=== PATIENT | male | born 1950 | race Caucasian/White ===

== ENCOUNTER 2017-07-10 13:51 | Observation (INO) | payer OTHER ==
[~2017-07-10 13:51] MED LIST: CEFTRIAXONE 1 GM in DEXTROSE 5%-WATER - 50 ML IVPB SCH
[2017-07-10 13:59] VITALS: BMI 28.2
--- NOTE | 2017-07-10 16:27 | PDOC ---
History of Present Illness - General Chief Complaint: Shortness of Breath Stated Complaint: SOB Time Seen by Provider: 07/10/17 15:44 History Source: Patient - History of Present Illness Initial Comments: 07/10/17 18:20 Patient is a 67 y.o. with a PMH of COPD (not on home O2), HTN, DLD, Chronic Back Pain and ID (s/p stent) who presents to our ED today c/o 1 day h/o of dyspnea on exertion. Patient endorses associated pleuritic chest pain but denes any cough. Patient notes a recent viral URI (symptoms resolved 1 week previous) as well as h/o diarrhea yesterday following excess consumption of non- pasteurized cheese. Past History - Past Medical History Allergies/Adverse Reactions: Allergies Allergy/AdvReac Type Severity Reaction Status Date / Time No Known Allergies Allergy Verified 07/10/17 13:56 Home Medications: Ambulatory Orders Albuterol 0.083% Nebulizer Andressa [Ventolin 0.083%] 1 neb NEB QID PRN 12/23/14 Albuterol Sulfate Inhaler - [Ventolin HFA Inhaler -] 1 - 2 inh PO Q6H PRN #1 inhaler 12/23/14 Aspirin [Aspirin EC] 81 mg PO DAILY 12/23/14 Levofloxacin [Levaquin -] 750 mg PO DAILY #10 tablet 12/23/14 Lisinopril [Prinivil -] 40 mg PO DAILY 12/23/14 Prednisone [Deltasone -] 40 mg PO DAILY #10 tablet 12/23/14 Rosuvastatin Calcium [Crestor] 20 mg PO DAILY 12/23/14 Salmeterol/Fluticasone [Advair 100Mcg/50Mcg -] 1 inh IH Q6H PRN #1 inh 12/23/14 Cardiac Disorders: Yes COPD: Yes HTN: Yes Hypercholesterolemia: Yes - Suicide/Smoking/Psychosocial Hx Smoking Status: No Smoking History: Current some day smoker Have you smoked in the past 12 months: No Number of Cigarettes Smoked Daily: 1 Information on smoking cessation initiated: No Hx Alcohol Use: No Drug/Substance Use Hx: No Substance Use Type: None Review of Systems - Review of Systems Constitutional: No: Chills, Fever Respiratory: Yes: Shortness of Breath Cardiac (ROS): Yes: Other (Pleuritic Chest Pain) ABD/GI: No: Constipated, Diarrhea, Nausea, Vomiting : No: Burning, Dysuria All Other Systems: Reviewed and Negative *Physical Exam - Vital Signs Last Vital Signs Temp Pulse Resp BP Pulse Ox 98.7 F 114 H 25 H 149/81 96 07/10/17 13:54 07/10/17 14:50 07/10/17 16:01 07/10/17 13:54 07/10/17 14:50 - Physical Exam General Appearance: Yes: Nourished, Appropriately Dressed HEENT: positive: EOMI, BETH Neck: positive: Trachea midline, Supple Respiratory/Chest: positive: Rapid RR, Wheezing. negative: Accessory Muscle Use , Labored Respiration Cardiovascular: positive: S1, S2 Integumentary: positive: Normal Color, Dry, Warm Neurologic: positive: Fully Oriented, Alert ED Treatment Course - LABORATORY CBC & Chemistry Diagram: 07/10/17 16:30 07/10/17 17:37 Medical Decision Making - Medical Decision Making 07/10/17 20:17 Patient is a 67 y.o. male who presents to the ED c/o dyspnea. On PE patient is hypoxic on RA, tachypneic and has significant wheezing on PE. Patient given Duo Nebs x2 + IV Solumedrol with resolution of wheezing but continued dyspnea and use of NC with SpO2 @ 94%. Will admit patient for further stabilization including pulmonary consult. Case d/w patient's PCP - Dr. Heller, agrees with admission. Request Ceftriaxone (1 mg QD) and Zithromax (500 mg BID) as well as pulmonary consult (Josafat) and ID consult (Bay). Patient signed out to Dr. Yariel Ni with planned disposition of admission following full medical evaluation with evaluation of CMP labs. Patient's PCP, Dr. Heller, requests callback when patient's lab results complete: [phone]. *DC/Admit/Observation/Transfer Diagnosis at time of Disposition: COPD (chronic obstructive pulmonary disease) - Discharge Dispostion Condition at time of disposition: Fair Admit: Yes - Referrals Referrals: Jorge A Heller MD [Primary Care Provider] - - Patient Instructions - Post Discharge Activity
[2017-07-10] MEDS ORDERED: methylPREDNISolone NA SUCC 125 MG/2 ML VIAL IVPB ONE (16:35)
[2017-07-10] MEDS ORDERED: AZITHROMYCIN 500 MG TABLET PO ONE (16:35)
[2017-07-10] MEDS ORDERED: AZITHROMYCIN 500 MG TABLET ONE (16:42)
[2017-07-10 16:43] LABS: BASO % 0.1 % (0-2.0); HEMATOCRIT 47.9 % (35.4-49); HEMOGLOBIN 16.3 GM/dL (11.7-16.9); LYMPH % 2.4 % (8-40); MCH 31.8 pg (25.7-33.7); MCHC 34.1 g/dl (32.0-35.9); MEAN CELL VOLUME 93.4 fl (80-96); MEAN PLT VOLUME 9.1 fl (7.5-11.1); MONO % 5.1 % (3.8-10.2); NEUT % 92.4 % (42.8-82.8); PLATELET COUNT 233 K/MM3 (134-434); RBC 5.13 M/mm3 (4.00-5.60); RDW 12.6 % (11.9-15.9); WHITE BLOOD COUNT 10.2 K/mm3 (4.0-10.0)
[2017-07-10] MEDS ORDERED: ALBUTEROL SO4 2.5/IPRATROPIUM 0.5 INH SOL 3 ML VIAL.NEB. NEB ONE (16:43)
[2017-07-10] MEDS ORDERED: methylPREDNISolone NA SUCC 125 MG/2 ML VIAL ONE (16:43)
[2017-07-10] MEDS: ALBUTEROL SO4 2.5/IPRATROPIUM 0.5 INH SOL 3 ML VIAL.NEB. NEB SCH ×4 (16:45→17:33)
--- NOTE | 2017-07-10 16:46 | PDOC ---
Attending Attestation - Resident Resident Name: Hellen Ricketts - ED Attending Attestation I have performed the following: I have examined & evaluated the patient, The case was reviewed & discussed with the resident, I agree w/resident's findings & plan, Exceptions are as noted - HPI HPI: 07/10/17 16:41 67 M with h/o COPD, HTN, HLD, CAD, active smoker, presenting to ER with SOB that began yesterday. Pt states that he feels chest tightness and has a dry nonproductive cough. Pt states it feels like his prior COPD exacerbations. He has been using his inhalers with minimal relief. Denies F/C. Denies leg swelling. - Physicial Exam PE: 07/10/17 16:44 "GENERAL: Awake, alert, and fully oriented, in no acute distress HEAD: No signs of trauma EYES: PERRLA, EOMI, sclera anicteric, conjunctiva clear ENT: Auricles normal inspection, hearing grossly normal, nares patent, oropharynx clear without exudates. Moist mucosa NECK: Nontender, no stepoffs, Normal ROM, supple, no lymphadenopathy, JVD, or masses LUNGS: bilateral expiratory wheezes, no rales/rhonchi HEART: Regular rate and rhythm, normal S1 and S2, no murmurs, rubs or gallops ABDOMEN: Soft, nontender, normoactive bowel sounds. No guarding, no rebound. No masses EXTREMITIES: Normal range of motion, no edema. No clubbing or cyanosis. No cords, erythema, or tenderness NEUROLOGICAL: Cranial nerves II through XII intact. 5/5 strength and sensation in all extremities, Normal speech, normal gait SKIN: Warm, Dry, normal turgor, no rashes or lesions noted. " - Medical Decision Making 07/10/17 16:45 67 M with likely COPD exacerbation. Given pt's significant cardiac history, will also r/o CAD and evaluate for CHF. - Labs, BNP, trop - CXR - Nebs, steroids - reassess Pt signed out to oncoming attending at 7PM, pending labs, XR, re-evaluation, and possible admission to hospital. Case discussed in detail with oncoming Emergency Physician including history, physical exam and ancillary studies. Oncoming Emergency Physician has assumed care for the patient and will complete the evaluation and treatment. Patient is aware of the plan.
[2017-07-10 20:35] LABS: ALBUMIN 4.5 g/dl (3.4-5.0); ANION GAP 13 (8-16); BILIRUBIN,TOTAL 0.6 mg/dL (0.2-1.0); BLOOD UREA NITROGEN 7 mg/dL (7-18); CALCIUM 8.9 mg/dL (8.5-10.1); CHLORIDE 102 mmol/L (98-107); CO2 25 mmol/L (21-32); CREATININE 0.8 mg/dL (0.7-1.3); GLUCOSE,RANDOM 103 mg/dL (74-106); SGPT/ALT 33 U/L (12-78); SODIUM 140 mmol/L (136-145); TOT PROT 7.9 g/dl (6.4-8.2)
--- NOTE | 2017-07-10 20:36 | PDOC ---
*Physical Exam - Vital Signs Last Vital Signs Temp Pulse Resp BP Pulse Ox 98.7 F 100 H 25 H 149/81 97 07/10/17 13:54 07/10/17 18:00 07/10/17 18:00 07/10/17 13:54 07/10/17 18:00 - Physical Exam Comments: 07/10/17 22:31 GENERAL: Awake, alert, and fully oriented, in no acute distress HEAD: No signs of trauma, normocephalic, atraumatic EYES: PERRLA, EOMI, sclera anicteric, conjunctiva clear ENT: Hearing grossly normal, nares patent, oropharynx clear without exudates. Moist mucosa NECK: Normal ROM, supple,no JVD, or masses LUNGS: + Exp/Insp rhonci. Absent rales. HEART: Regular rate and rhythm, normal S1 and S2, no murmurs, rubs or gallops, peripheral pulses normal and equal bilaterally. ABDOMEN: Soft, nontender, normoactive bowel sounds. No guarding, no rebound. No masses EXTREMITIES : Normal inspection, Normal range of motion, no edema. No clubbing or cyanosis. SKIN: Warm, Dry, normal turgor, no rashes or lesions noted. ED Treatment Course - LABORATORY CBC & Chemistry Diagram: 07/10/17 16:30 07/10/17 17:37 - ADDITIONAL ORDERS Additional order review: Laboratory Results 07/10/17 07/10/17 20:10 16:30 Anticoagulation Therapy No Result Required. O2 Delivery Device No Result Required. Oxygen Flow Rate No Result Required. Vent Mode No Result Required. Vent Rate No Result Required. Mechanical Rate No Result Required. Pressure Support Vent No Result Required. B-Natriuretic Peptide 304.37 H 07/10/17 18:05 Influenza Types A,B Antigen (PATRIZIA) - Final Nasopharyngeal Swab - Final 07/10/17 16:30 RBC 5.13 MCV 93.4 MCHC 34.1 RDW 12.6 MPV 9.1 Neutrophils % 92.4 H Lymphocytes % 2.4 L Monocytes % 5.1 Eosinophils % 0.0 Basophils % 0.1 - Medications Given in the ED: ED Medications Discontinued Medications Generic Name Dose Route Start Last Admin Trade Name Freq PRN Reason Stop Dose Admin Albuterol/Ipratropium 1 amp 07/10/17 16:45 01/24/18 17:33 Duoneb - NEB 07/10/17 17:31 1 amp Q15M JOHNNY Administration Azithromycin 500 mg 07/10/17 16:35 07/10/17 16:44 Azithromycin PO 07/10/17 16:36 500 mg ONCE ONE Administration Methylprednisolone Sodium Succinate 125 mg 07/10/17 16:35 07/10/17 16:44 Solu-Medrol - IVPB 07/10/17 16:36 125 mg ONCE ONE Administration Medical Decision Making - Medical Decision Making 07/10/17 22:29 67 y.o. male with h/o of COPD (not on home O2), HTN, [place] (s/p stent) who arrives to the ED tachypneic and hypoxic on RA with dyspnea x 1 day. Asx. w/ pleuritic chest pain. Physical exam notable for wheezing. Recieved handoff from Dr. Ricketts. ED course notable for Duo Nebs x2, IV Solumedrol w/ resolution of wheezing but continued dyspnea.Ceftriaxone (1 mg QD) and Zithromax (500 mg BID) started. Case d/w patient's PCP Dr. Heller, who agrees with admission. Pulm consult (Josafat) and ID consult (Bay).Patient is pending admission . ED Course: - Patient admitted to med/tele. Discussed with [employer] DES[employer]ER Evelyn Wolfe. - Patient stable with improvement in resp status. Wheezing resolved. *DC/Admit/Observation/Transfer Diagnosis at time of Disposition: COPD (chronic obstructive pulmonary disease) - Discharge Dispostion Condition at time of disposition: Fair - Referrals - Patient Instructions - Post Discharge Activity
[2017-07-10 20:37] LABS: ALK PHOS 78 U/L (45-117)
[2017-07-10 20:37] LABS: ARTERIAL BLD GAS O2 SATURATION 92.6 % (90-98.9); ARTERIAL BLOOD GAS BASE EXCESS 2.4 meq/l (-2-2); ARTERIAL BLOOD GAS PCO2 36.4 mmHg (35-45); ARTERIAL BLOOD GAS PO2 62.4 mmHg (80-100); ARTERIAL BLOOD GAS pH 7.46 (7.35-7.45)
[2017-07-10 20:38] LABS: POTASSIUM 4.1 mmol/L (3.5-5.1); SGOT/AST 23 U/L (15-37)
[2017-07-10 20:45] LABS: ALLENS TEST POSITIVE
[2017-07-10 20:47] LABS: CARBOXYHEMOGLOBIN 1.2 gm% (0.5-2.0)
--- NOTE | 2017-07-10 21:22 | HP ---
Admitting History and Physical - Primary Care Physician PCP: Jorge A Heller - Admission Chief Complaint: Dyspnea on exertion, cough, chest pain History of Present Illness: This is a 67 y/o man from home. Who presents to the ED with increased THACKER, non- productive cough and chest pain x 1day. Patient reports having flu like symptoms x 1 week. Patient reports pluertic chest pain when coughing, then resolves. Patient reports noting increased labored breathing on exertion. He denies fever, chills, dizziness, AP, N/V/D, constipation, dysuria. History Source: Patient Limitations to Obtaining History: No Limitations - Past Medical History Cardiovascular: Yes: HTN, Hyperlipdemia, [place] (s/p stent) Pulmonary: Yes: COPD Musculoskeletal: Yes: Chronic low back pain, Other (DJD) - Past Surgical History Past Surgical History: Yes: Stent - Smoking History Smoking history: Former smoker Have you smoked in the past 12 months: No - Alcohol/Substance Use Hx Alcohol Use: No History of Substance Use: reports: None - Social History Usual Living Arrangement: Yes: Alone History of Recent Travel: No Home Medications - Allergies Allergies/Adverse Reactions: Allergies Allergy/AdvReac Type Severity Reaction Status Date / Time No Known Allergies Allergy Verified 07/10/17 13:56 - Home Medications Home Medications: Ambulatory Orders Albuterol 0.083% Nebulizer Andressa [Ventolin 0.083%] 1 neb NEB QID PRN 12/23/14 Albuterol Sulfate Inhaler - [Ventolin HFA Inhaler -] 1 - 2 inh PO Q6H PRN #1 inhaler 12/23/14 Aspirin [Aspirin EC] 81 mg PO DAILY 12/23/14 Lisinopril [Prinivil -] 40 mg PO DAILY 12/23/14 Rosuvastatin Calcium [Crestor] 20 mg PO DAILY 12/23/14 Salmeterol/Fluticasone [Advair 100Mcg/50Mcg -] 1 inh IH Q6H PRN #1 inh 12/23/14 Review of Systems - Review of Systems Eyes: reports: No Symptoms HENT: reports: No Symptoms Cardiovascular: reports: Chest Pain, Shortness of Breath Respiratory: reports: Cough, SOB, SOB on Exertion, Wheezing Gastrointestinal: reports: No Symptoms Genitourinary: reports: No Symptoms Breasts: reports: No Symptoms Reported Musculoskeletal: reports: Back Pain Integumentary: reports: No Symptoms Neurological: reports: No Symptoms Endocrine: reports: No Symptoms Hematology/Lymphatic: reports: No Symptoms Psychiatric: reports: No Symptoms Physical Examination Vital Signs: Vital Signs Temperature 98.7 F 07/10/17 13:54 Pulse Rate 100 H 07/10/17 18:00 Respiratory Rate 25 H 07/10/17 18:00 Blood Pressure 149/81 07/10/17 13:54 O2 Sat by Pulse Oximetry (%) 97 07/10/17 18:00 Constitutional: Yes: Well Nourished, Moderate Distress Eyes: Yes: WNL, Conjunctiva Clear, EOM Intact, PERRL HENT: Yes: WNL, Atraumatic, Normocephalic Neck: Yes: WNL, Supple, Trachea Midline Cardiovascular: Yes: Tachycardia, S1, S2 Respiratory: Yes: Rhonchi, SOB, SOB on Exertion, Tachypnea, Wheezes Gastrointestinal: Yes: Normal Bowel Sounds, Soft Renal/: Yes: WNL Breast(s): Yes: WNL Musculoskeletal: Yes: WNL Extremities: Yes: WNL Edema: No Peripheral Pulses WNL: Yes Neurological: Yes: WNL, Alert, Oriented, Cran Nerves II-XII Intact ...Motor Strength: WNL, LUE, LLE, RUE, RLE Psychiatric: Yes: WNL, Alert, Oriented Labs: CBC, BMP 07/10/17 16:30 07/10/17 17:37 Laboratory Results - last 24 hr 07/10/17 07/10/17 07/10/17 16:30 16:30 17:37 WBC 10.2 H RBC 5.13 Hgb 16.3 Hct 47.9 MCV 93.4 MCH 31.8 MCHC 34.1 RDW 12.6 Plt Count 233 MPV 9.1 Neutrophils % 92.4 H Lymphocytes % 2.4 L Monocytes % 5.1 Eosinophils % 0.0 Basophils % 0.1 Anticoagulation Therapy Puncture Site ABG pH ABG pCO2 at Pt Temp ABG pO2 at Pt Temp ABG HCO3 ABG O2 Sat (Measured) ABG O2 Content ABG Base Excess Alvaro Test Carboxyhemoglobin Methemoglobin O2 Delivery Device Oxygen Flow Rate Vent Mode Vent Rate Mechanical Rate Pressure Support Vent Sodium 140 Potassium 4.1 Chloride 102 Carbon Dioxide 25 Anion Gap 13 BUN 7 Creatinine 0.8 Creat Clearance w eGFR > 60 Random Glucose 103 Calcium 8.9 Total Bilirubin 0.6 AST 23 ALT 33 Alkaline Phosphatase 78 Creatine Kinase 138 Troponin I < 0.02 B-Natriuretic Peptide 304.37 H Total Protein 7.9 Albumin 4.5 07/10/17 07/10/17 20:10 20:10 WBC RBC Hgb Hct MCV MCH MCHC RDW Plt Count MPV Neutrophils % Lymphocytes % Monocytes % Eosinophils % Basophils % Anticoagulation Therapy No Result Required. Puncture Site Right radial ABG pH 7.46 H ABG pCO2 at Pt Temp 36.4 ABG pO2 at Pt Temp 62.4 L ABG HCO3 25.5 ABG O2 Sat (Measured) 92.6 ABG O2 Content 20.5 ABG Base Excess 2.4 H Alvaro Test Positive Carboxyhemoglobin 1.2 Methemoglobin 0.8 O2 Delivery Device Nasal cannula Oxygen Flow Rate 4l Vent Mode No Result Required. Vent Rate No Result Required. Mechanical Rate No Result Required. Pressure Support Vent No Result Required. Sodium Potassium Chloride Carbon Dioxide Anion Gap BUN Creatinine Creat Clearance w eGFR Random Glucose Calcium Total Bilirubin AST ALT Alkaline Phosphatase Creatine Kinase Troponin I B-Natriuretic Peptide Total Protein Albumin Intake & Output 07/08/17 07/09/17 07/10/17 07/11/17 23:59 23:59 23:59 23:59 Weight 94.347 kg Imaging - Results Chest X-ray: Report Reviewed, Image Reviewed EKG: Image Reviewed Problem List - Problems (1) COPD exacerbation Code(s): J44.1 - CHRONIC OBSTRUCTIVE PULMONARY DISEASE W (ACUTE) EXACERBATION (2) Pleuritic chest pain Code(s): R07.81 - PLEURODYNIA (3) Atypical pneumonia Code(s): J18.9 - PNEUMONIA, UNSPECIFIED ORGANISM (4) CAD (coronary artery disease) Code(s): I25.10 - ATHSCL HEART DISEASE OF [place] CORONARY ARTERY W/O ANG PCTRS (5) HTN (hypertension) Code(s): I10 - ESSENTIAL (PRIMARY) HYPERTENSION (6) HLD (hyperlipidemia) Code(s): E78.5 - HYPERLIPIDEMIA, UNSPECIFIED (7) DVT prophylaxis Code(s): QRW1547 - Assessment/Plan 67 y/o man with a PMHx of: COPD, HTN, HLD, [place] (stent), DJD. Placed Tele Observation for Acute COPD Exacerbation, Atypical Pneumonia. Plan: 1. COPD Exacerbation - Acute - No leukocytosis, no L-shift - Chest xray report- no acute pathology - Duonebs - Solumederol given in ED - Continue Solumederol taper - Appreciate Pulm Consult - O2 - Monitor CBC,BMP - Monitor vitals 2. Atypical Pneumonia - hx recent viral illness - CURB65 1 - Blood Cultures-pending - Urine Culture-pending - Urine Legionella - Sputum culture - Appreciate plum - Azithyromcin given in ED - Will add Ceftriaxone and continue for CAP - O2 - Repeat CBC, BMP in am 3. Pleuritic Chest Pain - Likely secondary to cough - Serial Enzymes - Echo 4. CAD - s/p ?stent vs angiogram - Continue home meds - EKG- ST with PVC 5. HTN - Controlled - Monitor BP - Continue home meds - Monitor renal function 6. FEN - PO Fluids - Replete lytes prn - Low Na, Low Cholesterol Diet 7. Code Status: Full Code Dispo: Obs Visit type - Emergency Visit Emergency Visit: Yes ED Registration Date: 07/10/17 Care time: The patient presented to the Emergency Department on the above date and was hospitalized for further evaluation of their emergent condition. - New Patient This patient is new to me today: Yes Date on this admission: 07/10/17 - Critical Care Critical Care patient: No
[2017-07-10] MEDS ORDERED: ROSUVASTATIN CA 20 MG TABLET (FP) PO SCH (22:00)
[2017-07-10] MEDS ORDERED: CEFTRIAXONE 1 G/50 ML PREMIX 50 ML IVPB ONE (23:00)
[2017-07-10] MEDS ORDERED: LISINOPRIL 20 MG TABLET (FP) PO ONE (23:15)
[2017-07-10] MEDS ORDERED: IPRATROPIUM BR 0.02% 0.5 MG/2.5 ML VIAL.NEB. NEB ONE ×3 (23:15→23:29)
[2017-07-10] MEDS ORDERED: CEFTRIAXONE 1 GM/50 ML BAG ONE (23:17)
[2017-07-11] MEDS: methylPREDNISolone NA SUCC 40 MG/1 ML VIAL IVPUSH SCH ×3 (05:16→15:05)
[2017-07-11] MEDS ORDERED: methylPREDNISolone NA SUCC 40 MG/1 ML VIAL ONE (05:17)
[2017-07-11 08:01] LABS: ANION GAP 11 (8-16); BLOOD UREA NITROGEN 11 mg/dL (7-18); CALCIUM 8.7 mg/dL (8.5-10.1); CHLORIDE 103 mmol/L (98-107); CO2 27 mmol/L (21-32); GLUCOSE,RANDOM 180 mg/dL (74-106); MAGNESIUM 2.1 mg/dL (1.8-2.4); SODIUM 141 mmol/L (136-145)
[2017-07-11 08:03] LABS: CREATININE 0.7 mg/dL (0.7-1.3); PHOSPHOROUS 3.7 mg/dL (2.5-4.9)
[2017-07-11 08:14] LABS: BASO % 0.1 % (0-2.0); HEMATOCRIT 44.6 % (35.4-49); HEMOGLOBIN 14.9 GM/dL (11.7-16.9); LYMPH % 4.5 % (8-40); MCH 31.4 pg (25.7-33.7); MCHC 33.5 g/dl (32.0-35.9); MEAN CELL VOLUME 93.8 fl (80-96); MEAN PLT VOLUME 8.7 fl (7.5-11.1); MONO % 6.3 % (3.8-10.2); NEUT % 89.1 % (42.8-82.8); PLATELET COUNT 207 K/MM3 (134-434); RBC 4.76 M/mm3 (4.00-5.60); RDW 12.6 % (11.9-15.9); WHITE BLOOD COUNT 7.9 K/mm3 (4.0-10.0)
[2017-07-11] MEDS ORDERED: ALBUTEROL SO4 2.5/IPRATROPIUM 0.5 INH SOL 3 ML VIAL.NEB. NEB PRN (08:44)
[2017-07-11] MEDS ORDERED: CEFTRIAXONE 1 GM/50 ML BAG ONE (08:53)
[2017-07-11] MEDS ORDERED: AZITHROMYCIN IVPB 250 ML IVPB ONE (08:55)
[2017-07-11] MEDS ORDERED: ASPIRIN COATED 81 MG TABLET.EC PO SCH (10:00)
[2017-07-11] MEDS ORDERED: AZITHROMYCIN IVPB 500 MG in DEXTROSE 5%-WATER - 250 ML IVPB SCH (10:00)
[2017-07-11] MEDS ORDERED: CEFTRIAXONE 1 G/50 ML PREMIX 50 ML IVPB SCH (10:00)
[2017-07-11] MEDS ORDERED: LISINOPRIL 20 MG TABLET (FP) PO SCH (10:00)
--- NOTE | 2017-07-11 10:33 | EKG ---
Test Reason : Blood Pressure : / mmHG Vent. Rate : 113 BPM Atrial Rate : 113 BPM P-R Int : 140 ms QRS Dur : 080 ms QT Int : 316 ms P-R-T Axes : 068 001 050 degrees QTc Int : 433 ms POOR DATA QUALITY, INTERPRETATION MAY BE ADVERSELY AFFECTED SINUS TACHYCARDIA WITH PREMATURE SUPRAVENTRICULAR COMPLEXES OTHERWISE NORMAL ECG WHEN COMPARED WITH ECG OF 23-FEB-2005 16:35, PREMATURE SUPRAVENTRICULAR COMPLEXES ARE NOW PRESENT Confirmed by CATIE RAMOS, SANJIV ([id number]) on 07/11/2017 10:32:43 AM Referred By: Confirmed By:SANJIV HADDAD MD
[2017-07-11 13:59] VITALS: TEMP 98.3
--- NOTE | 2017-07-11 14:40 | CON.PULM ---
Consult Consult Specialty:: PULM/CCM Referred by:: KHADRA Reason for Consultation:: SOB - History of Present Illness Chief Complaint: SOB / COUGH History of Present Illness: 67 M, with listed medical history including COPD from smoking. Admitted via the ER due to progressive THACKER, non-productive cough, and pleuritic type chest pain for the past 1 week. No travel history or sick contacts. No subjective fever or chills. No night sweats or hemoptysis. No associated GI or symptoms. CXR: Clear - History Source History Provided By: Patient Limitations to Obtaining History: No Limitations - Past Medical History Cardio/Vascular: Yes: HTN, Hyperlipdemia, [place] (s/p stent) Pulmonary: Yes: COPD Musculoskeletal: Yes: Chronic low back pain, Other (DJD) - Past Surgical History Past Surgical History: Yes: Stent - Alcohol/Substance Use Hx Alcohol Use: No History of Substance Use: reports: None - Smoking History Smoking history: Former smoker Have you smoked in the past 12 months: No Aproximately how many cigarettes per day: 1 - Social History History of Recent Travel: No Home Medications - Allergies Allergies/Adverse Reactions: Allergies Allergy/AdvReac Type Severity Reaction Status Date / Time No Known Allergies Allergy Verified 07/10/17 13:56 - Home Medications Home Medications: Ambulatory Orders Albuterol 0.083% Nebulizer Andressa [Ventolin 0.083%] 1 neb NEB QID PRN 12/23/14 Albuterol Sulfate Inhaler - [Ventolin HFA Inhaler -] 1 - 2 inh PO Q6H PRN #1 inhaler 12/23/14 Aspirin [Aspirin EC] 81 mg PO DAILY 12/23/14 Lisinopril [Prinivil -] 40 mg PO DAILY 12/23/14 Rosuvastatin Calcium [Crestor] 20 mg PO DAILY 12/23/14 Salmeterol/Fluticasone [Advair 100Mcg/50Mcg -] 1 inh IH Q6H PRN #1 inh 12/23/14 Family Disease History - Family Disease History Family Disease History: Diabetes: Father, Heart Disease: Mother ( age 62 ), Other: Sister (well, alive) Review of Systems - Review of Systems Constitutional: reports: Malaise, Weakness. denies: Chills, Fever, Loss of Appetite, Night Sweats Eyes: reports: No Symptoms HENT: reports: No Symptoms Neck: reports: No Symptoms Cardiovascular: reports: Chest Pain, Shortness of Breath. denies: Edema, Palpitations Respiratory: reports: Cough, Snoring, SOB, SOB on Exertion, Wheezing. denies: Hemoptysis Gastrointestinal: reports: No Symptoms Genitourinary: reports: No Symptoms Breasts: reports: No Symptoms Reported Musculoskeletal: reports: No Symptoms Integumentary: reports: No Symptoms Neurological: reports: No Symptoms Endocrine: reports: No Symptoms Hematology/Lymphatic: reports: No Symptoms Psychiatric: reports: No Symptoms Physical Exam Vital Sings: Vital Signs Temperature 98.3 F 07/11/17 13:57 Pulse Rate 91 H 07/11/17 13:57 Respiratory Rate 16 07/11/17 13:57 Blood Pressure 121/76 07/11/17 13:57 O2 Sat by Pulse Oximetry (%) 94 L 07/11/17 13:57 Constitutional: Yes: No Distress, Calm Eyes: Yes: Conjunctiva Clear, EOM Intact HENT: Yes: Atraumatic, Normocephalic Neck: Yes: Supple, Trachea Midline Cardiovascular: Yes: Regular Rate and Rhythm Respiratory: Yes: Cough, Diminished, Rhonchi, SOB, Tachypnea, Wheezes. No: Accessory Muscle Use, On Nasal O2, Rales, Stridor ...Inspection: Yes: WNL ...Clubbing: No Gastrointestinal: Yes: Normal Bowel Sounds, Soft Renal/: Yes: WNL Musculoskeletal: Yes: WNL Extremities: Yes: WNL Edema: No Peripheral Pulses WNL: Yes Integumentary: Yes: WNL Neurological: Yes: WNL, Alert, Oriented ...Motor Strength: WNL Psychiatric: Yes: WNL, Alert, Oriented Labs: CBC, BMP 07/11/17 06:20 07/11/17 06:20 ABG Results ABG pH 7.46 (7.35-7.45) H 07/10/17 20:10 ABG pCO2 at Pt Temp 36.4 mmHg (35-45) 07/10/17 20:10 ABG pO2 at Pt Temp 62.4 mmHg (80-100) L 07/10/17 20:10 ABG HCO3 25.5 meq/L (22-26) 07/10/17 20:10 ABG O2 Sat (Measured) 92.6 % (90-98.9) 07/10/17 20:10 ABG O2 Content 20.5 % vol (15-22) 07/10/17 20:10 ABG Base Excess 2.4 meq/l (-2-2) H 07/10/17 20:10 Imaging - Results Chest X-ray: Report Reviewed, Image Reviewed Problem List - Problems (1) CAD (coronary artery disease) Code(s): I25.10 - ATHSCL HEART DISEASE OF [place] CORONARY ARTERY W/O ANG PCTRS (2) COPD (chronic obstructive pulmonary disease) Code(s): J44.9 - CHRONIC OBSTRUCTIVE PULMONARY DISEASE, UNSPECIFIED (3) Chronic back pain Code(s): M54.9 - DORSALGIA, UNSPECIFIED; G89.29 - OTHER CHRONIC PAIN (4) DJD (degenerative joint disease) Code(s): M19.90 - UNSPECIFIED OSTEOARTHRITIS, UNSPECIFIED SITE (5) HLD (hyperlipidemia) Code(s): E78.5 - HYPERLIPIDEMIA, UNSPECIFIED (6) HTN (hypertension) Code(s): I10 - ESSENTIAL (PRIMARY) HYPERTENSION (7) Pleuritic chest pain Code(s): R07.81 - PLEURODYNIA (8) COPD exacerbation Code(s): J44.1 - CHRONIC OBSTRUCTIVE PULMONARY DISEASE W (ACUTE) EXACERBATION Assessment/Plan Medrol O2 as needed Low threshold to stop ABX given clear CXR, normal WBC, and he is afebrile BD TX VTE prophylaxis On discharge home should be on LAMA/LABA/ICS No smoking Hopefully should be ready for D/C within 24 hours as he reports feeling better Will follow Thank you. Dr Lin
[2017-07-11] MEDS ORDERED: ALBUTEROL SO4 0.083% IH SOL 2.5 MG/3 ML VIAL.NEB. NEB PRN (14:46)
[2017-07-11] MEDS ORDERED: ALBUTEROL SO4 2.5/IPRATROPIUM 0.5 INH SOL 3 ML VIAL.NEB. NEB SCH (16:00)
--- NOTE | 2017-07-11 16:48 | CON.ID ---
Consult Consult Specialty:: infectious diseases Reason for Consultation:: hypoxia,sob - History of Present Illness Chief Complaint: sob History of Present Illness: 67 y/o man from home. Who presented to the ED and still in ed with increased sob ,dry cough. Patient reports having flu like symptoms x 1 week. Patient reports pluertic chest pain when coughing, then resolves. Patient reports noting increased labored breathing on exertion. He denies fever, chills, dizziness, AP , N/V/D, constipation, dysuria. currently the patient feels well and says he is going to go home this evening his breathing it seems has got better patient has received steroids and abx uptill now no other symptoms,no sick contacts - History Source History Provided By: Patient Limitations to Obtaining History: No Limitations - Past Medical History Cardio/Vascular: Yes: HTN, Hyperlipdemia, GA (s/p stent) Pulmonary: Yes: COPD Musculoskeletal: Yes: Chronic low back pain, Other (DJD) - Past Surgical History Past Surgical History: Yes: Stent - Alcohol/Substance Use Hx Alcohol Use: No History of Substance Use: reports: None - Smoking History Smoking history: Former smoker Have you smoked in the past 12 months: No Aproximately how many cigarettes per day: 1 - Social History History of Recent Travel: No Home Medications - Allergies Allergies/Adverse Reactions: Allergies Allergy/AdvReac Type Severity Reaction Status Date / Time No Known Allergies Allergy Verified 07/10/17 13:56 - Home Medications Home Medications: Ambulatory Orders Albuterol 0.083% Nebulizer Andressa [Ventolin 0.083%] 1 neb NEB QID PRN 12/23/14 Albuterol Sulfate Inhaler - [Ventolin HFA Inhaler -] 1 - 2 inh PO Q6H PRN #1 inhaler 12/23/14 Aspirin [Aspirin EC] 81 mg PO DAILY 12/23/14 Lisinopril [Prinivil -] 40 mg PO DAILY 12/23/14 Rosuvastatin Calcium [Crestor] 20 mg PO DAILY 12/23/14 Salmeterol/Fluticasone [Advair 100Mcg/50Mcg -] 1 inh IH Q6H PRN #1 inh 12/23/14 Family Disease History - Family Disease History Family Disease History: Diabetes: Father, Heart Disease: Mother ( age 62 ), Other: Sister (well, alive) Review of Systems - Review of Systems Constitutional: reports: No Symptoms Eyes: reports: No Symptoms HENT: reports: No Symptoms Neck: reports: No Symptoms Cardiovascular: reports: No Symptoms Respiratory: reports: Cough, SOB, SOB on Exertion, Wheezing Gastrointestinal: reports: No Symptoms Genitourinary: reports: No Symptoms Musculoskeletal: reports: No Symptoms Integumentary: reports: No Symptoms Neurological: reports: No Symptoms Endocrine: reports: No Symptoms Hematology/Lymphatic: reports: No Symptoms Psychiatric: reports: No Symptoms Physical Exam Vital Signs: Vital Signs Temperature 98.3 F 07/11/17 13:57 Pulse Rate 91 H 07/11/17 13:57 Respiratory Rate 16 07/11/17 13:57 Blood Pressure 121/76 07/11/17 13:57 O2 Sat by Pulse Oximetry (%) 94 L 07/11/17 13:57 Constitutional: Yes: No Distress, Calm Cardiovascular: Yes: Regular Rate and Rhythm Respiratory: Yes: Poor Air Entry, Other (patient resp effort is very poor) Gastrointestinal: Yes: Normal Bowel Sounds, Soft Musculoskeletal: Yes: WNL Extremities: Yes: WNL Neurological: Yes: Alert, Oriented Psychiatric: Yes: Alert, Oriented Labs: CBC, BMP 07/11/17 06:20 07/11/17 06:20 Imaging - Results Chest X-ray: Report Reviewed, Image Reviewed Assessment/Plan patient coming in with copd exacerebration his recent history of flu makes him high risk for infection currently it does not look like he has any infection going on i would be be very careful in him Problem List - Problems (1) CAD (coronary artery disease) Code(s): I25.10 - ATHSCL HEART DISEASE OF [place] CORONARY ARTERY W/O ANG PCTRS (2) COPD (chronic obstructive pulmonary disease) Code(s): J44.9 - CHRONIC OBSTRUCTIVE PULMONARY DISEASE, UNSPECIFIED (3) Chronic back pain Code(s): M54.9 - DORSALGIA, UNSPECIFIED; G89.29 - OTHER CHRONIC PAIN (4) DJD (degenerative joint disease) Code(s): M19.90 - UNSPECIFIED OSTEOARTHRITIS, UNSPECIFIED SITE (5) HLD (hyperlipidemia) Code(s): E78.5 - HYPERLIPIDEMIA, UNSPECIFIED (6) HTN (hypertension) Code(s): I10 - ESSENTIAL (PRIMARY) HYPERTENSION (7) Pleuritic chest pain Code(s): R07.81 - PLEURODYNIA (8) COPD exacerbation Code(s): J44.1 - CHRONIC OBSTRUCTIVE PULMONARY DISEASE W (ACUTE) EXACER plan i will discontinue ceftriaxone if patient decides to go home i would send him on zithro for 4 more days rest as per primary incentive alia
[2017-07-11] MEDS ORDERED: ALBUTEROL SO4 2.5/IPRATROPIUM 0.5 INH SOL 3 ML VIAL.NEB. NEB ONE (17:12)
[2017-07-11 18:05] VITALS: BP 126/76; PULSE 93
== END 2017-07-11 19:34 | disposition left against medical advice (07) ==
LOC: JER 13:51 → JERBED 21:08
PROVIDERS: ADMIT Internal Medicine; ATTEND Internal Medicine
PROC: 3E03329 Introduction of Other Anti-infective into Peripheral Vein, Percutaneous Approach (ICD-10-PCS; principal; 2017-07-10)
PROC: 3E0333Z Introduction of Anti-inflammatory into Peripheral Vein, Percutaneous Approach (ICD-10-PCS; 2017-07-10)
PROC: 3E0F7GC Introduction of Other Therapeutic Substance into Respiratory Tract, Via Natural or Artificial Opening (ICD-10-PCS; 2017-07-10)
DX: J44.1 Chronic obstructive pulmonary disease with (acute) exacerbation (principal); R07.81 Pleurodynia; J18.9 Pneumonia, unspecified organism; I10 Essential (primary) hypertension; I25.10 Atherosclerotic heart disease of native coronary artery without angina pectoris; E78.5 Hyperlipidemia, unspecified; I25.2 Old myocardial infarction; F17.210 Nicotine dependence, cigarettes, uncomplicated; M54.5 Low back pain; G89.29 Other chronic pain; Z95.5 Presence of coronary angioplasty implant and graft; Z79.82 Long term (current) use of aspirin; M19.90 Unspecified osteoarthritis, unspecified site
CPT/HCPCS: 36415; 36600; 71046-TC; 80048; 80053; 82375; 82550; 82803; 83050; 83605; 83735; 83880; 84100; 84484; 85025; 87804; 93005; 93010; 93306-TC; 94640; 96365; 96375; 96376; 99283-25; G0378